=== PATIENT | female | born 1960 | race Two or more races ===

== ENCOUNTER → 2020-11-16 | Outpatient (CLI) | payer OTHER | END | disposition home or self-care (01) | LOC: RAD 16:22 | PROVIDERS: ATTEND Neurological Surgery | DX: S33.140A Subluxation of L4/L5 lumbar vertebra, initial encounter (principal); M41.84 Other forms of scoliosis, thoracic region; M47.817 Spondylosis without myelopathy or radiculopathy, lumbosacral region; X58.XXXA Exposure to other specified factors, initial encounter; Y93.89 Activity, other specified; Y92.89 Other specified places as the place of occurrence of the external cause; Y99.8 Other external cause status | CPT/HCPCS: 72082; 72110 ==

== ENCOUNTER → 2021-03-26 | Outpatient (CLI) | payer OTHER | END | disposition home or self-care (01) | LOC: RAD 16:03 | PROVIDERS: ATTEND Student in an Organized Health Care Education/Training Program | DX: M51.16 Intervertebral disc disorders with radiculopathy, lumbar region (principal); M41.9 Scoliosis, unspecified; Z98.1 Arthrodesis status | CPT/HCPCS: 72100 ==